=== PATIENT | female | born 1980 | race Hispanic/Latino ===

== ENCOUNTER 2016-11-23 11:04 | Emergency (ER) | payer OTHER ==
[~2016-11-23] VITALS: Ht 172.7 cm; Wt 145.0 kg
[~2016-11-23 11:04] MED LIST: GENTAK0.32 OS; LORTAB 5/3255 MG PO; MACROBID100 MG OR; MEDDOSEPAK PO; NAPROSYN500 MG PO; PENICILLN VK500 MG PO; PREDNISONE10 MG PO; PYRIDIUM200 MG PO; TORADOL OR
[2016-11-23] MEDS ORDERED: MOTRIN800 MG PO (11:45)
[2016-11-23 12:04] VITALS: BP 119/84
== END 2016-11-23 12:04 | disposition home or self-care (01) | DRG 558 ==
LOC: ED 11:04
DX: M72.2 Plantar fascial fibromatosis (principal)